=== PATIENT | female | born 1980 | race African-American/Black ===

== ENCOUNTER 2019-11-11 10:38 | Emergency (ER) | payer SELFPAY ==
[~2019-11-11] VITALS: Ht 167.6 cm; Wt 58.0 kg
[2019-11-11 11:48] LABS: MEAN CORPUSCULAR HEMOGLOBIN 29.6 pg (27.0-34.8); MEAN CORPUSCULAR VOLUME 92.4 fL (80-100); MEAN PLATELET VOLUME 9.4 fL (7.4-10.4); PLATELET COUNT 261 x10^3/uL (130-400); RED BLOOD COUNT 4.55 x10^6/uL (3.82-5.3); RED CELL DISTRIBUTION WIDTH 13.6 % (9.6-15.2)
[2019-11-11 11:52] LABS: ALBUMIN 3.9 g/dL (3.4-5.0); ANION GAP 7 mmol/L (5-15); CALCIUM 8.6 mg/dL (8.5-10.1); CHLORIDE 105 mmol/L (98-107); SALICYLATE LEVEL < 1.7 mg/dL (2.8-20.0)
[2019-11-11 11:57] LABS: ALANINE AMINOTRANSFERASE 16 U/L (12-78); ALKALINE PHOSPHATASE 44 U/L (45-117); BILIRUBIN,TOTAL 0.3 mg/dL (0.2-1.0); CREATININE 0.79 mg/dL (0.55-1.02); TOTAL PROTEIN 8.1 g/dL (6.4-8.2)
--- NOTE | 2019-11-11 11:57 | NUR ---
[employer]IN [employer] REPAIRER AT THE AT THIS TIME
[2019-11-11 11:58] LABS: MICROSCOPIC NOT IND
[2019-11-11 12:12] LABS: MD YES
[2019-11-11 12:14] LABS: EOS#(MANUAL) 0.25 x10^3/uL (0.0-0.4); EOS% (MANUAL) 6 % (1-7); LYMPH#(MANUAL) 2.31 x10^3/uL (1-3.4); LYMPHS% (MANUAL) 55 % (22-44); MONOS#(MANUAL) 0.38 x10^3/uL (0.3-2.7); MONOS% (MANUAL) 9 % (2-9); REACTIVE LYMPHS # (MANUAL) 0.04 x10^3/uL (0-0); REACTIVE LYMPHS % (MANUAL) 1 % (0-0); SEG#(MANUAL) 1.22 x10^3/uL (1.8-6.8); SEGS% (MANUAL) 29 % (42-75)
[2019-11-11 12:15] LABS: <PLATELET ESTIMATE> ADEQUATE; <PLT MORPHOLOGY> NORMAL PLT MORPH; <RBC MORPHOLOGY> NORMAL
[2019-11-11 12:21] LABS: AMPHETAMINE SCREEN, URINE Negative (Negative); BARBITURATE SCREEN, URINE Negative (Negative); BENZODIAZEPINE SCREEN, URINE Negative (Negative); CANNABINOID SCREEN, URINE Negative (Negative); COCAINE SCREEN, URINE Negative (Negative); METHADONE SCREEN, URINE Negative (Negative); OPIATE SCREEN, URINE Negative (Negative)
--- NOTE | 2019-11-11 13:17 | NUR ---
THROUGHPUT RN: VINAY NOTIFIED PT IS IN ER. JOE STATES SHE WILL LOOK AT PT'S CHART.
[2019-11-11] MEDS ORDERED: HALOPERIDOL 5 MG/ML IM PRN (13:30)
[2019-11-11] MEDS ORDERED: HYDROXYZINE PAMOATE 50MG CAP PO PRN (13:30)
[2019-11-11] MEDS ORDERED: DIPHENHYDRAMINE 50 MG/ML, 1ML IM PRN (13:30)
[2019-11-11] MEDS ORDERED: PLEASE ENTER ALLERGIES MC SCH (13:30)
[2019-11-11] MEDS ORDERED: LORazepam 2 MG/ML, 1ML IM PRN (13:30)
--- NOTE | 2019-11-11 13:38 | NUR ---
[employer] FARM MANAGER TO CONTINUE HOLD PT PLACED IN A GOWN AND ALL BELONGING SECURED, 2 VERY LG BLACK BAGS AND ONE SMALL WHITE BAG.
[2019-11-11] MEDS ORDERED: hydrOXyzine 50MG TABLET ONE (13:45)
--- NOTE | 2019-11-11 14:24 | NUR ---
THROUGHPUT RN: PER [facility] ON [facility], THEY WILL BE DENYING PT SHE IS SELF PAY. PACKET FAXED TO [facility].
--- NOTE | 2019-11-11 14:49 | NUR ---
PT RESTING SITTER IN THE CALLES
--- NOTE | 2019-11-11 16:42 | NUR ---
REMAINS SLEEPING SITTER IN THE CALLES
--- NOTE | 2019-11-11 19:21 | NUR ---
1ST CONTACT C PT. RESTING ON CART IN NAD. SITTER OUTSIDE OF ROOM. WILL CTM.
[2019-11-11] MEDS ORDERED: QUETIAPINE 100MG TABLET PO SCH (21:00)
[2019-11-11] MEDS ORDERED: QUETIAPINE 100MG TABLET ONE (21:02)
--- NOTE | 2019-11-11 21:20 | NUR ---
PT REFUSING RX AT THIS TIME. ONLY WANTS TO TAKE VISTARIL..AFRAID OF RX INTERACTION,
[2019-11-11] MEDS ORDERED: DIPHENHYDRAMINE 50 MG/ML, 1ML ONE (22:18)
[2019-11-11] MEDS ORDERED: HALOPERIDOL 5 MG/ML ONE (22:19)
[2019-11-11] MEDS ORDERED: LORazepam 2 MG/ML, 1ML ONE (22:19)
--- NOTE | 2019-11-11 22:28 | NUR ---
PT WALKED TO RESTROOM BY YUMIKOTER. THEN BEGAN SHOUTING AT STAFF THAT SHE WAS GOING TO URINATE ON HERSELF. WALKED BACK TO ROOM. CONTINUES TO SHOUT AT STAFF, KAMLESHING Claus RODRIGUEZ STAFF MEMBERS, SPIT TOWARDS SITTER. SECURITY C SUP AT BS. ATTEMPTING TO CALM PT S RESULTS. PT CONTINUES TO SHOUT & ARGUE C STAFF, WALKED TO RESTROOM & BACK TO ROOM. PT HYPERVERBAL, CONTINUES TO SHOUT OUT TO NO ONE, ABOUT RACIAL PROFILING AND DEMANDING PAPER WORK ABOUT HER RXS. SITTER REMAINS AT BS. WILL CTM. PT SITTING ON EDGE OF BED.
--- NOTE | 2019-11-11 23:57 | NUR ---
PT SLEEPING ON CART. RR EVEN NON LABORED. SITTER AT BS. WILL CTM.
[2019-11-12 00:49] VITALS: BP 98/64
--- NOTE | 2019-11-12 01:41 | NUR ---
Break RN: Patient sleeping, sitter in bedside within two steps of patient.
--- NOTE | 2019-11-12 03:43 | NUR ---
PT SLEEPING. RR EVEN NON LABORED. IN NAD. SITTER INSIDE DOORWAY OF ROOM. WILL CTM.
--- NOTE | 2019-11-12 06:23 | NUR ---
PT SLEEPING. RR EVEN NON LABORED. SITTER OUTSIDE OF ROOM. WILL CTM.
--- NOTE | 2019-11-12 07:03 | NUR ---
LATE ENTRY FOR 0650 RECEIVED BEDSIDE REPORT FROM EDWARD LEDBETTER. PT SLEEPING ON HOSP BED. NADN. ALL SAFETY MEASURES OBTAINED. WILL CONTINUE TO MONITOR.
--- NOTE | 2019-11-12 08:20 | NUR ---
PT CONTINUES TO SLEEP ON HOSP BED. NADN. RESPS EQUAL AND UNLABORED. SITTER AT DOORWAY, PT WITHIN FULL VIEW. ALL SAFETY MEASURES OBTAINED.
--- NOTE | 2019-11-12 08:28 | NUR ---
DIET TRAY DELIVERED.
--- NOTE | 2019-11-12 08:53 | NUR ---
PT FINISHED BREAKFAST. NADN. NO NEEDS REQUESTED FROM PT. ALL SAFETY MEASURES OBTAINED.
--- NOTE | 2019-11-12 08:55 | NUR ---
PT CONTINUES TO DENY HI/SI
--- NOTE | 2019-11-12 10:38 | NUR ---
PT SLEEPING ON HOSP BED. NADN. ALL SAFETY MEASURES OBTAINED. SITTER AT DOORWAY, PT WITHIN FULL VIEW. WILL CONTINUE TO MONITOR.
--- NOTE | 2019-11-12 10:56 | NUR ---
BEDSIDE REPORT TO EDWARD RUTHERFORD.
--- NOTE | 2019-11-12 10:58 | NUR ---
REPORT FROM EMMANUELLE LEON, ASSUME CARE OF PT AT THIS TIME. SITTER AT DOORWAY, PT RESTING/EYES CLOSED.
--- NOTE | 2019-11-12 11:13 | NUR ---
REPORT TO EDWARD JULIO AT [facility]. PT ACCEPTED FOR TRANSFER AT 1300, ACCEPTING MD PETER.
--- NOTE | 2019-11-12 12:19 | NUR ---
X LARGE DUFFLE, BLACK GARBAGE BAG AND ONE BELONGING BAG REMOVED FROM LOCKER AND PLACED BY SITTER AT PT'S ROOM PENDING TRANSFER TO [facility].
== END 2019-11-12 14:03 ==
LOC: ED 13:38
DX: F23 Brief psychotic disorder (principal); F22 Delusional disorders; F17.200 Nicotine dependence, unspecified, uncomplicated
CPT/HCPCS: 36415; 80053; 80307; 81003; 84703; 85025; 96372; 99285; J1200; J1630; J2060